=== PATIENT | female | born 1995 | race Caucasian/White ===

== ENCOUNTER 2025-02-27 17:50 | Emergency (ER) | payer BC ==
[~2025-02-27] VITALS: Ht 160 cm; Wt 63.5 kg
[2025-02-27 17:54] VITALS: BP 121/85; TEMP 98.5; O2SAT 95
[2025-02-27 18:37] LABS: PLATELET COUNT (AUTO) 288 K/uL (150-450); RED BLOOD CELL COUNT(AUTO) 4.50 MIL/uL (4.0-5.2); RED CELL DISTRIBUTION WIDTH 13.2 % (11.5-15.0); WHITE BLOOD COUNT (AUTO) 9.5 K/uL (4.3-11.0)
[2025-02-27 18:42] LABS: CALCIUM, SERUM 9.4 mg/dL (8.5-10.1); CREATININE 1.0 mg/dL (0.6-1.3); SODIUM SERUM 136.0 mmol/L (136-145); UREA NITROGEN, BLOOD 19.0 mg/dL (7-18)
[2025-02-27] MEDS ORDERED: TERB250T53 PO (18:49)
[2025-02-27] MEDS ORDERED: CIPR10DR LEFT EAR (18:49)
[2025-02-27 19:04] LABS: ASPARTATE AMINOTRANSFERASE 20.0 U/L (15-37); TOTAL PROTEIN, SERUM 8.1 g/dL (6.4-8.2)
== END 2025-02-27 20:14 | disposition home or self-care (01) ==
LOC: ER 17:50
DX: B35.1 Tinea unguium (principal); H60.90 Unspecified otitis externa, unspecified ear
CPT/HCPCS: 36415; 80048-TC; 80076-TC; 85025-TC